=== PATIENT | male | born 1970 | race Two or more races ===

== ENCOUNTER 2018-08-16 06:50 | Day surgery (SDC) | payer OTHER | END 2018-08-16 11:55 | disposition home or self-care (01) | LOC: AMB-ENDOS 06:50 | DX: D12.0 Benign neoplasm of cecum (principal); K64.8 Other hemorrhoids ==

== ENCOUNTER 2018-09-04 14:42 | Inpatient (IN) | payer OTHER ==
[~2018-09-04] VITALS: Ht 180.3 cm; Wt 97.1 kg
== END 2018-09-11 16:27 | disposition home or self-care (01) | DRG 330 ==
LOC: SURH 09-08 08:00 → O/R 09-08 19:39 → SURH 09-08 19:39
PROVIDERS: ADMIT Colon & Rectal Surgery
PROC: 0DTP4ZZ Resection of Rectum, Percutaneous Endoscopic Approach (ICD-10-PCS; 2018-09-08)
PROC: 07TC4ZZ Resection of Pelvis Lymphatic, Percutaneous Endoscopic Approach (ICD-10-PCS; 2018-09-08)
PROC: 0DJD8ZZ Inspection of Lower Intestinal Tract, Via Natural or Artificial Opening Endoscopic (ICD-10-PCS; 2018-09-08)
PROC: 0D1B4Z4 Bypass Ileum to Cutaneous, Percutaneous Endoscopic Approach (ICD-10-PCS; principal; 2018-09-08 08:00)
DX: C20 Malignant neoplasm of rectum (principal); K56.690 Other partial intestinal obstruction; K57.32 Diverticulitis of large intestine without perforation or abscess without bleeding; R15.9 Full incontinence of feces; K63.89 Other specified diseases of intestine; R59.0 Localized enlarged lymph nodes; K63.5 Polyp of colon; I11.9 Hypertensive heart disease without heart failure

== ENCOUNTER 2018-09-06 06:18 | Day surgery (SDC) | payer OTHER | END 2018-09-06 10:00 | disposition home or self-care (01) | LOC: AMB-ENDOS 06:18 | DX: D12.2 Benign neoplasm of ascending colon (principal); D12.3 Benign neoplasm of transverse colon; D12.5 Benign neoplasm of sigmoid colon; K64.8 Other hemorrhoids ==

== ENCOUNTER 2019-04-30 10:30 | Inpatient (IN) | payer OTHER ==
[~2019-04-30] VITALS: Ht 180.3 cm; Wt 96.6 kg
[2019-04-30] MEDS ORDERED: MAGNESIUM200 MG (12:46)
[2019-04-30] MEDS ORDERED: PROBIOTIC1 EAC2 (12:46)
[2019-04-30] MEDS ORDERED: IMODIUM (12:47)
[2019-05-11] MEDS ORDERED: IMODIUM A-D2 MG (07:58)
== END 2019-05-20 19:18 | disposition home or self-care (01) | DRG 330 ==
LOC: SURH 05-11 07:00 → O/R 05-11 07:12 → SURH 05-11 10:30 → O/R 05-11 10:30 → SURH 05-11 13:49
PROVIDERS: ADMIT Colon & Rectal Surgery
PROC: 0DT84ZZ Resection of Small Intestine, Percutaneous Endoscopic Approach (ICD-10-PCS; 2019-05-11)
PROC: 0D1B4Z4 Bypass Ileum to Cutaneous, Percutaneous Endoscopic Approach (ICD-10-PCS; principal; 2019-05-11 07:00)
PROC: BW21ZZZ Computerized Tomography (CT Scan) of Abdomen and Pelvis (ICD-10-PCS; 2019-05-17)
DX: Z43.2 Encounter for attention to ileostomy (principal); K91.89 Other postprocedural complications and disorders of digestive system; R18.8 Other ascites; K56.0 Paralytic ileus; I11.9 Hypertensive heart disease without heart failure; K63.5 Polyp of colon; Z15.09 Genetic susceptibility to other malignant neoplasm

== ENCOUNTER 2019-05-09 06:23 | Day surgery (SDC) | payer OTHER ==
[~2019-05-09 06:23] MED LIST: IMODIUM; MAGNESIUM200 MG; PROBIOTIC1 EAC2
== END 2019-05-09 11:31 | disposition home or self-care (01) ==
LOC: AMB-ENDOS 06:23 → CIR.AMB 11:50 → AMB-ENDOS 11:51
DX: K62.89 Other specified diseases of anus and rectum (principal); K64.8 Other hemorrhoids

== ENCOUNTER 2019-12-05 05:40 | Day surgery (SDC) | payer OTHER ==
[~2019-12-05 05:40] MED LIST changes: +IMODIUM A-D2 MG
== END 2019-12-05 11:10 | disposition home or self-care (01) ==
LOC: AMB-ENDOS 05:40
PROVIDERS: ATTEND Colon & Rectal Surgery
DX: K62.89 Other specified diseases of anus and rectum (principal); K64.8 Other hemorrhoids

== ENCOUNTER 2020-12-17 07:14 | Day surgery (SDC) | payer OTHER | END 2020-12-17 11:25 | disposition home or self-care (01) | LOC: AMB-ENDOS 07:14 | PROVIDERS: ATTEND Colon & Rectal Surgery | DX: D12.0 Benign neoplasm of cecum (principal); D12.4 Benign neoplasm of descending colon ==

== ENCOUNTER 2021-12-09 06:31 | Day surgery (SDC) | payer OTHER | END 2021-12-09 11:15 | disposition home or self-care (01) | LOC: AMB-ENDOS 06:31 | PROVIDERS: ATTEND Colon & Rectal Surgery | DX: K52.89 Other specified noninfective gastroenteritis and colitis (principal); Z20.822 Contact with and (suspected) exposure to COVID-19; Z15.09 Genetic susceptibility to other malignant neoplasm; Z85.038 Personal history of other malignant neoplasm of large intestine; K64.4 Residual hemorrhoidal skin tags; Z86.010 Personal history of colon polyps; I10 Essential (primary) hypertension ==

== ENCOUNTER 2023-02-02 06:43 | Day surgery (SDC) | payer OTHER | END 2023-02-02 11:55 | disposition home or self-care (01) | LOC: AMB-ENDOS 06:43 | PROVIDERS: ATTEND Colon & Rectal Surgery | DX: D12.2 Benign neoplasm of ascending colon (principal); D12.3 Benign neoplasm of transverse colon; D12.4 Benign neoplasm of descending colon; Z20.822 Contact with and (suspected) exposure to COVID-19 ==

== ENCOUNTER 2024-02-08 06:30 | Day surgery (SDC) | payer OTHER ==
[2024-02-08] MEDS ORDERED: DIPHENHYDRAMINE HCL 50 MG/ML VIAL 1ML IV ONE (09:15)
[2024-02-08] MEDS ORDERED: ONDANSETRON HCL 2 MG/ML VIAL IV ONE (09:15)
[2024-02-08] MEDS ORDERED: MIDAZOLAM HCL 2 MG/2 ML VIAL IV ONE (09:15)
[2024-02-08] MEDS ORDERED: fentaNYL CITRATE 50 MCG/ML AMPUL IV PUSH ONE (09:15)
== END 2024-02-08 10:20 | disposition home or self-care (01) ==
LOC: AMB-ENDOS 06:30
PROVIDERS: ATTEND Colon & Rectal Surgery
DX: D12.3 Benign neoplasm of transverse colon (principal); K63.5 Polyp of colon; R19.4 Change in bowel habit